=== PATIENT | male | born 1970 | race American Indian/Alaskan Native ===

== ENCOUNTER 2019-04-06 19:49 | Emergency (ER) | payer BC, OTHER ==
[2019-04-06 19:57] VITALS: BP 146/89
[2019-04-06] MEDS ORDERED: NACL 0.9% 1000 ML 1,000 ML IV ONE (20:45)
[2019-04-06] MEDS ORDERED: ZOFRAN IV ONE (20:45)
[2019-04-06] MEDS ORDERED: MORPHINE IV ONE (20:46)
[2019-04-06 21:03] LABS: Basophils % (Auto) 0.5 % (0.0-1.8); Eosinophils # (Auto) 0.2 K/mm3 (0.0-0.4); Eosinophils % (Auto) 2.9 % (0.0-4.3); Hematocrit 47.1 % (35.5-45.6); Hemoglobin 16.6 gm/dl (11.8-15.2); Lymphocytes # (Auto) 1.9 K/mm3 (1.2-5.4); Lymphocytes % (Auto) 23.8 % (13.4-35.0); Mean Corpuscular HGB Conc 35 % (32-34); Mean Corpuscular Volume 99 fl (84-94); Monocytes # (Auto) 1.1 K/mm3 (0.0-0.8); Monocytes % (Auto) 14.4 % (0.0-7.3); Platelet Count 232 K/mm3 (140-440); Red Blood Count 4.77 M/mm3 (3.65-5.03); Red Cell Distribution Width 12.6 % (13.2-15.2)
--- NOTE | 2019-04-06 21:17 | Emergency Department Report ---
ED Abdominal Pain HPI - General Chief Complaint: Abdominal Pain Stated Complaint: STOMACH PAIN Time Seen by Provider: 04/06/19 20:36 Source: patient Mode of arrival: Ambulatory Limitations: No Limitations - History of Present Illness Initial Comments: Patient is a 48-year-old -Welsh male who presents for epigastric pain 7/10 aching burning patient has history of pancreatitis uses current EtOH last drink was yesterday [id number] smoker is associated nausea vomiting no fever no chills no diarrhea no melena no bloody stools last intake was yesterday as nausea vomiting was yesterday there is no chest pain no shortness of breath no back pain no dizziness no lightheadedness patient herself to ED today denies symptoms of withdrawal at this time there is no tremor no confusion no delerium. MD Complaint: abdominal pain Onset/Timin -: days(s) Location: diffuse, LUQ, epigastric Migration to: LUQ Severity: moderate Severity scale (0 -10): 6 Quality: sharp Consistency: constant Improves With: nothing Worsens With: eating Associated Symptoms: nausea, vomiting - Related Data Previous Rx's Medication Instructions Recorded Last Taken Type Ondansetron [Zofran Odt] 4 mg PO TID #9 tab.rapdis 12/02/15 Unknown Rx Dicyclomine [Bentyl] 10 mg PO QID PRN #40 capsule 04/06/19 Unknown Rx Omeprazole 40 mg PO DAILY #30 capsule. 04/06/19 Unknown Rx Sucralfate [Carafate] 1 gm PO ACHS #30 tablet 04/06/19 Unknown Rx traMADol [Ultram] 50 mg PO Q6HR PRN #12 tablet 04/06/19 Unknown Rx Allergies Allergy/AdvReac Type Severity Reaction Status Date / Time No Known Allergies Allergy Verified 12/01/15 16:08 ED Review of Systems ROS: Stated complaint: STOMACH PAIN Other details as noted in HPI Constitutional: denies: chills, fever Eyes: denies: eye pain, eye discharge, vision change ENT: denies: ear pain, throat pain Respiratory: denies: cough, shortness of breath, wheezing Cardiovascular: denies: chest pain, palpitations Endocrine: no symptoms reported Gastrointestinal: abdominal pain, nausea, vomiting. denies: diarrhea, constip ation, hematemesis, melena, hematochezia Genitourinary: denies: urgency, dysuria Musculoskeletal: denies: back pain, joint swelling, arthralgia Skin: denies: rash, lesions Neurological: denies: headache, weakness, paresthesias Psychiatric: denies: anxiety, depression Hematological/Lymphatic: denies: easy bleeding, easy bruising ED Past Medical Hx - Past Medical History Previous Medical History?: Yes Additional medical history: pancreatitis - Surgical History Past Surgical History?: Yes Additional Surgical History: HERNIA repair - Social History Smoking Status: Current Every Day Smoker Substance Use Type: Alcohol - Medications Home Medications: Home Medications Medication Instructions Recorded Confirmed Last Taken Type Ondansetron [Zofran Odt] 4 mg PO TID #9 tab.rapdis 12/02/15 Unknown Rx Dicyclomine [Bentyl] 10 mg PO QID PRN #40 capsule 04/06/19 Unknown Rx Omeprazole 40 mg PO DAILY #30 capsule. 04/06/19 Unknown Rx Sucralfate [Carafate] 1 gm PO ACHS #30 tablet 04/06/19 Unknown Rx traMADol [Ultram] 50 mg PO Q6HR PRN #12 tablet 04/06/19 Unknown Rx ED Physical Exam - General Limitations: No Limitations General appearance: alert, in no apparent distress - Head Head exam: Present: atraumatic, normocephalic - Eye Eye exam: Present: normal appearance, PERRL Pupils: Present: normal accommodation - ENT ENT exam: Present: mucous membranes moist - Neck Neck exam: Present: normal inspection, full ROM. Absent: tenderness, lymphadenopathy - Respiratory Respiratory exam: Present: normal lung sounds bilaterally. Absent: wheezes, stridor, chest wall tenderness - Cardiovascular Cardiovascular Exam: Present: regular rate, normal rhythm, normal heart sounds. Absent: systolic murmur, diastolic murmur, rubs, gallop - GI/Abdominal GI/Abdominal exam: Present: soft, tenderness (epigastric ), normal bowel sounds. Absent: distended, guarding, rebound, rigid, bruit, hernia - Rectal Rectal exam: Present: deferred - Extremities Exam Extremities exam: Present: normal inspection - Back Exam Back exam: Present: normal inspection, full ROM. Absent: tenderness, CVA tenderness (R), CVA tenderness (L), muscle spasm, paraspinal tenderness, vertebral tenderness, rash noted - Neurological Exam Neurological exam: Present: alert, oriented X3, CN II-XII intact, normal gait - Psychiatric Psychiatric exam: Present: normal affect, normal mood - Skin Skin exam: Present: warm, dry, intact, normal color. Absent: rash ED Course Vital Signs 04/06/19 04/06/19 19:53 19:56 Temperature 98.4 F 98.8 F Pulse Rate 98 H 75 Respiratory 18 18 Rate Blood Pressure 134/93 146/89 O2 Sat by Pulse 97 100 Oximetry ED Medical Decision Making - Lab Data Result diagrams: 04/06/19 20:48 04/06/19 20:48 Labs 04/06/19 04/06/19 04/06/19 20:48 20:48 20:48 WBC 7.9 RBC 4.77 Hgb 16.6 H Hct 47.1 H MCV 99 H MCH 35 H MCHC 35 H RDW 12.6 L Plt Count 232 Lymph % (Auto) 23.8 Wilson % (Auto) 14.4 H Eos % (Auto) 2.9 Baso % (Auto) 0.5 Lymph # 1.9 Wilson # 1.1 H Eos # 0.2 Baso # 0.0 Seg Neutrophils % 58.4 Seg Neutrophils # 4.6 Sodium 138 Potassium 3.5 L Chloride 97.9 L Carbon Dioxide 23 Anion Gap 21 BUN 6 L Creatinine 0.9 Estimated GFR > 60 BUN/Creatinine Ratio 7 Glucose 154 H Calcium 9.7 Total Bilirubin 0.70 AST 49 H ALT 44 Alkaline Phosphatase 77 Total Creatine Kinase 71 Total Protein 7.2 Albumin 4.1 Albumin/Globulin Ratio 1.3 Lipase 652 H Urine Color Urine Turbidity Urine pH Ur Specific [place] Urine Protein Urine Glucose (UA) Urine Ketones Urine Blood Urine Nitrite Urine Bilirubin Urine Urobilinogen Ur Leukocyte Esterase Urine WBC (Auto) Urine RBC (Auto) Urine Bacteria (Auto) Urine Mucus 04/06/19 22:00 WBC RBC Hgb Hct MCV MCH MCHC RDW Plt Count Lymph % (Auto) Wilson % (Auto) Eos % (Auto) Baso % (Auto) Lymph # Wilson # Eos # Baso # Seg Neutrophils % Seg Neutrophils # Sodium Potassium Chloride Carbon Dioxide Anion Gap BUN Creatinine Estimated GFR BUN/Creatinine Ratio Glucose Calcium Total Bilirubin AST ALT Alkaline Phosphatase Total Creatine Kinase Total Protein Albumin Albumin/Globulin Ratio Lipase Urine Color Yellow Urine Turbidity Clear Urine pH 5.0 Ur Specific [place] 1.009 Urine Protein <15 mg/dl Urine Glucose (UA) Neg Urine Ketones Tr Urine Blood Sm Urine Nitrite Neg Urine Bilirubin Neg Urine Urobilinogen < 2.0 Ur Leukocyte Esterase Neg Urine WBC (Auto) 4.0 Urine RBC (Auto) 1.0 Urine Bacteria (Auto) 1+ Urine Mucus Few - Radiology Data Radiology results: report reviewed, image reviewed Ordering Physician: JAMES GUIDRY Date of Service: 04/06/19 Procedure(s): CT abdomen pelvis w con Accession Number(s): [id number] cc: JAMES GUIDRY PROCEDURE: CT ABDOMEN PELVIS W CON TECHNIQUE: Computerized axial tomography of the abdomen and pelvis was performed after the administration of IV iodinated nonionic contrast. CT DOSE LENGTH PRODUCT: 2301.2 mGycm HISTORY: abd pain n/v COMPARISONS: None . FINDINGS: A small hypodense lesion measuring 5 mm is noted anterior right lobe liver. There is inhomogeneous fatty infiltration of liver. Spleen, pancreas and adrenal glands are within normal limits. Bilateral kidneys demonstrate normal enhancement without hydronephrosis. Small simple appearing cystic lesions are noted in bilateral kidneys measuring less than a centimeter. Urinary bladder is partially filled and demonstrates mild degree wall thickening. Aorta is of normal caliber. There is no free fluid or free air. Gallbladder is well-distended with normal outlines. Small bowel loops are within normal limits. Appendix is normal. Small fat-containing uncomplicated umbilical hernia is noted. Moderate degree degenerative changes are noted involving bilateral sacroiliac joints is. Vertebral height is normal. IMPRESSION: Fatty infiltration of liver. A 5 mm hypodense lesion of right lobe liver is of nonspecific nature. Ultrasound evaluation may be recommended. Mild degree thickening of urinary bladder pineda are most likely secondary to lack of distention. Cystitis cannot be excluded in the appropriate clinical setting. This document is electronically signed by Refugio Elliott MD., April 06 2019 10:17:04 PM ET Transcribed By: [facility] [place] Dictated By: REFUGIO ELLIOTT Electronically Authenticated By: REFUGIO ELLIOTT Signed Date/Time: 04/06/192218 DD/ 00 TD/TT: 04/06/192158 - Medical Decision Making CT abd and pelvis: Fatty Liver Disease, small umbilical hernia, no obstruction , there is no fever no n/v pt is now tolerating po intake plan: dc to home in stable condition , stop ETOH, pepcid, bentyl, ultram follow up with pcp in 2-3 days return to ed if symptoms worsen, pt verbalized agreement and understanding of discharge plan. Critical care attestation.: If time is entered above; I have spent that time in minutes in the direct care of this critically ill patient, excluding procedure time. ED Disposition Clinical Impression: Abdominal pain Qualifiers: Abdominal location: left upper quadrant Qualified Code(s): R10.12 - Left upper quadrant pain Nausea and vomiting Qualifiers: Vomiting type: unspecified Vomiting Intractability: non-intractable Qualified Code(s): R11.2 - Nausea with vomiting, unspecified Disposition: DC-01 TO HOME OR SELFCARE Is pt being admited?: No Does the pt Need Aspirin: No Condition: Stable Instructions: Acute Nausea and Vomiting (ED), Pancreatitis (ED), Abuse of Alcohol (ED), Abdominal Pain (ED) Prescriptions: Dicyclomine [Bentyl] 10 mg PO QID PRN #40 capsule PRN Reason: abdominal spasm Sucralfate [Carafate] 1 gm PO ACHS #30 tablet Omeprazole 40 mg PO DAILY #30 capsule. traMADol [Ultram] 50 mg PO Q6HR PRN #12 tablet PRN Reason: Pain Referrals: [facility] [Provider Group] - 3-5 Days [facility] [Outside] - 3-5 Days Forms: Work/School Release Form(ED) Time of Disposition: 23:03
[2019-04-06 21:26] LABS: Alanine Aminotransferase 44 units/L (7-56); Albumin 4.1 g/dL (3.9-5); BUN/Creatinine Ratio 7; Blood Urea Nitrogen 6 mg/dL (9-20); Calcium 9.7 mg/dL (8.4-10.2); Hemolysis Index 3
--- NOTE | 2019-04-06 22:19 | Cat Scan Report ---
PROCEDURE: CT ABDOMEN PELVIS W CON TECHNIQUE: Computerized axial tomography of the abdomen and pelvis was performed after the administr ation of IV iodinated nonionic contrast. CT DOSE LENGTH PRODUCT: 2301.2 mGycm HISTORY: abd pain n/v COMPARISONS: None . FINDINGS: A small hypodense lesion measuring 5 mm is noted anterior right lobe liver. There is inhomogeneous fa tty infiltration of liver. Spleen, pancreas and adrenal glands are within normal limits. Bilateral ki dneys demonstrate normal enhancement without hydronephrosis. Small simple appearing cystic lesions ar e noted in bilateral kidneys measuring less than a centimeter. Urinary bladder is partially filled an d demonstrates mild degree wall thickening. Aorta is of normal caliber. There is no free fluid or abdirahman e air. Gallbladder is well-distended with normal outlines. Small bowel loops are within normal limits . Appendix is normal. Small fat-containing uncomplicated umbilical hernia is noted. Moderate degree d egenerative changes are noted involving bilateral sacroiliac joints is. Vertebral height is normal. IMPRESSION: Fatty infiltration of liver. A 5 mm hypodense lesion of right lobe liver is of nonspecific nature. Ultrasound evaluation may be re commended. Mild degree thickening of urinary bladder pineda are most likely secondary to lack of distention. Cyst itis cannot be excluded in the appropriate clinical setting. This document is electronically signed by Refugio Elliott MD., April 06 2019 10:17:04 PM ET
[2019-04-06 22:25] LABS: Bacteria,Urine 1+ /HPF (Negative); Bilirubin,Urine NEG (Negative); Blood,Urine SM (Negative); Color,Urine Yellow (Yellow); Mucus,Urine FEW /HPF; Protein,Urine <15 mg/dL mg/dL (Negative); Urobilinogen,Urine < 2.0 mg/dL (<2.0)
== END 2019-04-06 23:15 | disposition home or self-care (01) ==
LOC: ED 19:49
DX: R10.12 Left upper quadrant pain (principal); R11.2 Nausea with vomiting, unspecified; K42.9 Umbilical hernia without obstruction or gangrene; K76.0 Fatty (change of) liver, not elsewhere classified; F17.200 Nicotine dependence, unspecified, uncomplicated; Z79.899 Other long term (current) drug therapy
CPT/HCPCS: 36415; 74177; 80053; 81001; 82550; 83690; 85025; 93005; 93010; 96361; 96374; 96375; 99284; J2270; J2405; J7030; Q9967